=== PATIENT | male | born 2000 | race Two or more races ===

== ENCOUNTER 2022-07-15 17:46 | Emergency (ER) | payer MEDICAID, OTHER ==
[~2022-07-15] VITALS: Ht 180.3 cm; Wt 72.5 kg
[2022-07-15] MEDS ORDERED: KETOROLAC TROMETH 60MG/2ML VIAL IM ONE (21:30)
[2022-07-15 22:17] VITALS: BP 130/88
== END 2022-07-15 22:18 | disposition home or self-care (01) ==
LOC: ER 17:46
DX: S00.212A Abrasion of left eyelid and periocular area, initial encounter (principal); S50.812A Abrasion of left forearm, initial encounter; V89.2XXA Person injured in unspecified motor-vehicle accident, traffic, initial encounter; Y93.89 Activity, other specified; Y92.89 Other specified places as the place of occurrence of the external cause; Y99.8 Other external cause status
CPT/HCPCS: 73130; 96372; 99283; J1885